=== PATIENT | male | born 1960 | race African-American/Black ===

== ENCOUNTER 2017-01-02 17:12 | Emergency (ER) | payer MEDICAID, OTHER ==
[~2017-01-02] VITALS: Ht 172.7 cm; Wt 95.3 kg
[~2017-01-02 17:12] MED LIST: ALBUTEROL2.5 MG/3 M INH; ALPRAZOLAM0.25 MG ORAL; ASPIR 8181 MG ORAL; ATARAX25 MG ORAL; CYCLOBENZAPRINE10 MG ORAL; IBUPROFEN600 MG ORAL; OMEPRAZOLE40 M1 ORAL; PROTONIX40 MG ORAL
[2017-01-02 18:10] VITALS: BP 120/79
--- NOTE | 2017-01-02 19:39 | Emergency Room Report ---
History of Present Illness General Chief Complaint: Dizziness Source: Patient Present Illness HPI 56-year-old male presents to ED for evaluation. States that while washing his car today of side he started to feel dizzy and lightheaded. Patient became very anxious and went inside. Patient states he started to cool off with a fan , started drinking water. Patient states he felt better however he came to ER for evaluation. Denies any dizziness at this time. Denies any headache, blurred vision. Denies chest pain or shortness of breath. Patient notes history of anxiety. Denies drug use. No other aggravating or leading factors. Denies any other associated symptoms. Allergies: Coded Allergies: PREDNISOLONE (Verified Allergy, Mild, Hives, 03/27/14) Patient History Past Medical History: psych hx Past Surgical History: none Pertinent Family History: none Social History: Denies: alcohol use, drug use, smoking Immunizations: UTD Reviewed Nursing Documentation: PMH: Agreed, PSxH: Agreed Nursing Documentation-PMH Past Medical History: No History, Except For Hx Asthma: Yes Hx Gastrointestinal Problems: Yes - GERD Hx Neurological Problems: Yes - Neck and right shoulder injury Review of Systems All Other Systems: negative except mentioned in HPI Physical Exam Vital Signs Date Time Temp Pulse Resp B/P Pulse Ox O2 Delivery O2 Flow Rate FiO2 01/02/17 17:25 98.6 85 14 121/77 98 Room Air Sp02 EP Interpretation: reviewed, normal General Appearance: no apparent distress, alert, GCS 15, non-toxic Head: normocephalic, atraumatic Eyes: bilateral eye PERRL, bilateral eye normal inspection ENT: hearing grossly normal, normal pharynx, no angioedema, normal voice Neck: full range of motion, supple/symm/no masses Respiratory: chest non-tender, lungs clear, normal breath sounds, speaking full sentences Cardiovascular #1: regular rate, rhythm, no edema Cardiovascular #2: 2+ carotid (R), 2+ carotid (L), 2+ radial (R), 2+ radial (L) , 2+ dorsalis pedis (R), 2+ dorsalis pedis (L) Gastrointestinal: normal bowel sounds, non tender, soft, non-distended, no guarding, no rebound Rectal: deferred Genitourinary: normal inspection, no CVA tenderness Musculoskeletal: back normal, gait/station normal, normal range of motion, non- tender Neurologic: alert, oriented x3, responsive, motor strength/tone normal, sensory intact, speech normal Psychiatric: judgement/insight normal, memory normal, mood/affect normal, no suicidal/homicidal ideation Reflexes: 3+ bicep (R), 3+ bicep (L), 3+ tricep (R), 3+ tricep (L), 3+ knee (R) , 3+ knee (L) Skin: normal color, no rash, warm/dry, well hydrated Lymphatic: no adenopathy Medical Decision Making Diagnostic Impression: Primary Impression: Dizziness Additional Impression: Anxiety attack ER Course Hospital Course 56-year-old M presents ED complaining of dizziness while outside. no symptoms now Differential diagnoses include: afib, Vtach, SVT, anxiety, dehydration Clinical course Patient placed on stretcher. After initial history, physical exam reveals a middle-age male in no acute distress. Physical exam unremarkable. Reviewed EMR patient has been here multiple times in the past for similar episodes. Patient has been seen by myself as well. Patient has history of anxiety which likely exacerbates his symptoms. Patient has no cardiac risk factors. Patient is stable vitals here EKG shows no acute ischemic changes, normal sinus rhythm Reassurance given to patient. I believe patient be safely discharged to home at this time I. I feel this is a highly complex case requiring extensive working including EKG/Rhythm strip, Xray/CT/US, Blood/urine lab work, repeat exams while in ED, and administration of strong opiates/narcotics for pain control, admission to hospital or close patient follow up. Diagnosis - dizziness, anxiety Stable and discharged to home. Instructed to followup with PMD. Return to ED if symptoms recur or worsen EKG Diagnostic Results Rate: normal Rhythm: NSR ST Segments: no acute changes ASA given to the pt in ED: No Rhythm Strip Diag. Results EP Interpretation: yes Rhythm: NSR, no PVC's, no ectopy Last Vital Signs Date Time Temp Pulse Resp B/P Pulse Ox O2 Delivery O2 Flow Rate FiO2 01/02/17 18:10 98.4 73 17 120/79 100 Room Air Status: improved Disposition: HOME, SELF-CARE Condition: Stable Referrals: [facility],REFERRING (PCP) Patient Instructions: Dizziness MICKEY THOMPSON M.D. January 02, 2017 19:39
--- NOTE | 2017-01-04 17:00 | Cardiology Report ---
APPROVED REPORT EKG Measurement Heart [id number] Normal sinus rhythm Normal ECG
== END 2017-01-02 18:13 | disposition home or self-care (01) ==
LOC: EMR 18:00
DX: R42 Dizziness and giddiness (principal); F41.9 Anxiety disorder, unspecified; J45.909 Unspecified asthma, uncomplicated; K21.9 Gastro-esophageal reflux disease without esophagitis
CPT/HCPCS: 93005; 99283

== ENCOUNTER 2017-05-09 09:01 | Emergency (ER) | payer MEDICAID ==
[~2017-05-09] VITALS: Ht 172.7 cm; Wt 93.0 kg
[2017-05-09 09:18] VITALS: BP 127/67
--- NOTE | 2017-05-09 09:29 | Emergency Room Report ---
History of Present Illness General Chief Complaint: Diarrhea Source: Patient Present Illness HPI 57-year-old male presents ED for evaluation. Patient states he's been having diarrhea x1 day. Patient feels very weak and dehydrated. Denies any abdominal pain. Denies any fevers or chills. Denies recent antibiotic use. Denies recent travel. No other aggravating relieving factors. Denies any other associated symptoms Allergies: Coded Allergies: PREDNISOLONE (Verified Allergy, Mild, Hives, 03/27/14) Patient History Past Medical History: asthma, GERD Past Surgical History: none Pertinent Family History: none Social History: Denies: smoking, alcohol use, drug use Immunizations: UTD Reviewed Nursing Documentation: PMH: Agreed, PSxH: Agreed Nursing Documentation-PMH Hx Asthma: Yes Hx Gastrointestinal Problems: Yes - GERD Hx Neurological Problems: Yes - Neck and right shoulder injury Review of Systems All Other Systems: negative except mentioned in HPI Physical Exam Vital Signs Date Time Temp Pulse Resp B/P (MAP) Pulse Ox O2 Delivery O2 Flow Rate FiO2 05/09/17 09:08 100.0 91 20 132/77 99 Room Air Sp02 EP Interpretation: reviewed, normal General Appearance: no apparent distress, alert, GCS 15, non-toxic Head: normocephalic, atraumatic Eyes: bilateral eye normal inspection, bilateral eye PERRL ENT: hearing grossly normal, normal pharynx, no angioedema, normal voice Neck: full range of motion, supple/symm/no masses Respiratory: chest non-tender, lungs clear, normal breath sounds, speaking full sentences Cardiovascular #1: regular rate, rhythm, no edema Cardiovascular #2: 2+ carotid (R), 2+ carotid (L), 2+ radial (R), 2+ radial (L) , 2+ dorsalis pedis (R), 2+ dorsalis pedis (L) Gastrointestinal: normal bowel sounds, non tender, soft, non-distended, no guarding, no rebound Rectal: deferred Genitourinary: normal inspection, no CVA tenderness Musculoskeletal: back normal, gait/station normal, normal range of motion, non- tender Neurologic: alert, oriented x3, responsive, motor strength/tone normal, sensory intact, speech normal Psychiatric: judgement/insight normal, memory normal, mood/affect normal, no suicidal/homicidal ideation Reflexes: 3+ bicep (R), 3+ bicep (L), 3+ tricep (R), 3+ tricep (L), 3+ knee (R) , 3+ knee (L) Skin: normal color, no rash, warm/dry, well hydrated Lymphatic: no adenopathy Medical Decision Making Diagnostic Impression: Primary Impression: Gastroenteritis Additional Impression: Renal insufficiency ER Course Hospital Course 57-year-old M presents to ED with cramping abdominal pain with vomiting, diarrhea differential diagnosis: gastritis, SBO, cholecystits, gastroenteritis Clinical course Patient placed on stretcher. On clinical writer. After initial history and physical I ordered labs, IV fluids, GI cocktail Labs - no leukocytosis, Cr 1.7, LFTs normal, UA unremarkable Upon reassessment, patient states he feels better. Given elevated creatinine I did offer patient option for admission for IV hydration He declined stating he would rather go home and drink fluids. Consistent gastroenteritis I feel this is a highly complex case requiring extensive working including EKG/ Rhythm strip, Xray/CT/US, Blood/urine lab work, repeat exams while in ED, and administration of strong opiates/narcotics for pain control, admission to hospital or close patient follow up. Diagnosis - gastroenteritis Stable and discharged to home with prescriptions for Zantac, Bentyl. Followup with PMD. Return to ED if symptoms recur or worsen Labs Test 05/09/17 09:40 White Blood Count 7.1 K/UL (4.8-10.8) Red Blood Count 5.04 M/UL (4.70-6.10) Hemoglobin 15.8 G/DL (14.2-18.0) Hematocrit 46.9 % (42.0-52.0) Mean Corpuscular Volume 93 FL (80-99) Mean Corpuscular Hemoglobin 31.3 PG (27.0-31.0) Mean Corpuscular Hemoglobin Concent 33.6 G/DL (32.0-36.0) Red Cell Distribution Width 12.1 % (11.6-14.8) Platelet Count 203 K/UL (150-450) Mean Platelet Volume 7.2 FL (6.5-10.1) Neutrophils (%) (Auto) 69.2 % (45.0-75.0) Lymphocytes (%) (Auto) 12.8 % (20.0-45.0) Monocytes (%) (Auto) 17.1 % (1.0-10.0) Eosinophils (%) (Auto) 0.0 % (0.0-3.0) Basophils (%) (Auto) 0.9 % (0.0-2.0) Sodium Level 136 mEQ/L (135-145) Potassium Level 3.6 mEQ/L (3.4-4.9) Chloride Level 99 mEQ/L (98-107) Carbon Dioxide Level 22 mEQ/L (20-30) Anion Gap 15 (5-15) Blood Urea Nitrogen 20 mg/dL (7-23) Creatinine 1.7 mg/dL (0.7-1.2) Estimat Glomerular Filtration Rate 50.4 mL/min (>60) Glucose Level 118 mg/dL (74-106) Calcium Level 8.8 mg/dL (8.6-10.2) Total Bilirubin 0.7 mg/dL (0.0-1.2) Aspartate Amino Transf (AST/SGOT) 20 U/L (5-40) Alanine Aminotransferase (ALT/SGPT) 9 U/L (3-41) Alkaline Phosphatase 59 U/L (40-129) Total Protein 7.3 g/dL (6.6-8.7) Albumin 3.7 g/dL (3.5-5.2) Globulin 3.6 g/dL Albumin/Globulin Ratio 1.0 (1.0-2.7) Lipase 11 U/L (< 60) Last Vital Signs Date Time Temp Pulse Resp B/P (MAP) Pulse Ox O2 Delivery O2 Flow Rate FiO2 05/09/17 09:08 100.0 91 20 132/77 99 Room Air Status: improved Disposition: HOME, SELF-CARE Condition: Stable Scripts Dicyclomine Hcl* (BENTYL*) 10 Mg Capsule 10 MG ORAL FOUR TIMES A DAY, #20 CAP Prov: MICKEY THOMPSON M.D. 05/09/17 Ranitidine Hcl* (ZANTAC*) 150 Mg Tablet 150 MG ORAL TWICE A DAY, #30 TAB Prov: MICKEY THOMPSON M.D. 05/09/17 Referrals: [facility],REFERRING (PCP) MICKEY THOMPSON M.D. May 09, 2017 09:29
[2017-05-09 09:58] LABS: BASOPHILS % (AUTO) 0.9 % (0.0-2.0); LYMPHOCYTES % (AUTO) 12.8 % (20.0-45.0); MEAN CORPUSCULAR HEMOGLOBIN 31.3 PG (27.0-31.0); MEAN CORPUSCULAR HGB CONC 33.6 G/DL (32.0-36.0); MEAN CORPUSCULAR VOLUME 93 FL (80-99); MEAN PLATELET VOLUME 7.2 FL (6.5-10.1); MONOCYTES % (AUTO) 17.1 % (1.0-10.0); NEUTROPHILS % (AUTO) 69.2 % (45.0-75.0); PLATELET COUNT 203 K/UL (150-450); RED BLOOD COUNT 5.04 M/UL (4.70-6.10); RED CELL DISTRIBUTION WIDTH 12.1 % (11.6-14.8); WHITE BLOOD COUNT 7.1 K/UL (4.8-10.8)
[2017-05-09 10:09] LABS: CALCIUM 8.8 mg/dL (8.6-10.2); CREATININE 1.7 mg/dL (0.7-1.2); GLOMERULAR FILTRATION RATE 50.4 mL/min (>60); POTASSIUM 3.6 mEQ/L (3.4-4.9); TOTAL PROTEIN 7.3 g/dL (6.6-8.7)
[2017-05-09] MEDS ORDERED: RANITIDINE HCL150 MG ORAL (10:58)
[2017-05-09] MEDS ORDERED: BENTYL10 MG ORAL (10:58)
[2017-05-09] MEDS ORDERED: Lidocaine 2% Visc 15ml soln ORAL ONE (11:00)
[2017-05-09] MEDS ORDERED: Mylanta II UD 30ml ORAL ONE (11:00)
[2017-05-09] MEDS ORDERED: Dicyclomine HCl 10mg/5ml oral soln ORAL ONE (11:00)
[2017-05-09 11:15] VITALS: BP 127/67
[2017-05-10] MEDS ORDERED: LOMOTIL TABLET1 EAC1 PO (02:34)
== END 2017-05-09 11:15 | disposition home or self-care (01) ==
LOC: EMR 09:19
DX: K52.9 Noninfective gastroenteritis and colitis, unspecified (principal); N28.9 Disorder of kidney and ureter, unspecified; J45.909 Unspecified asthma, uncomplicated; K21.9 Gastro-esophageal reflux disease without esophagitis
CPT/HCPCS: 36415; 80053; 83690; 85025; 96360; 99284

== ENCOUNTER 2017-05-10 02:04 | Emergency (ER) | payer MEDICAID ==
[~2017-05-10] VITALS: Ht 172.7 cm; Wt 93.0 kg
[~2017-05-10 02:04] MED LIST changes: +BENTYL10 MG ORAL; +RANITIDINE HCL150 MG ORAL
[2017-05-10] MEDS ORDERED: LOMOTIL TABLET1 EAC1 PO (02:34)
--- NOTE | 2017-05-10 02:34 | Emergency Room Report ---
History of Present Illness General Chief Complaint: Abdominal Pain Source: Patient Present Illness HPI Is a 57-year-old male with no symptoms in past medical history. He does have a history of anxiety. He presents with abdominal cramping and profuse watery diarrhea. Onset for 2 days. He thought it may be secondary to food poisoning. He was here yesterday and blood work was unremarkable. Because symptoms did not resolve he is here again. He called 911. No fever or chills but no nausea no vomiting. Decreased appetite. Diarrhea is watery. No blood. Allergies: Coded Allergies: PREDNISOLONE (Verified Allergy, Mild, Hives, 03/27/14) Patient History Past Medical History: see triage record, old chart reviewed Past Surgical History: none Pertinent Family History: none Social History: Denies: smoking Immunizations: other Reviewed Nursing Documentation: PMH: Agreed, PSxH: Agreed Nursing Documentation-PMH Past Medical History: No Stated History Hx Asthma: Yes Hx Gastrointestinal Problems: Yes - GERD Hx Neurological Problems: Yes - Neck and right shoulder injury Review of Systems Eye: Denies: eye pain, blurred vision ENT: Denies: ear pain, nose congestion, throat swelling Respiratory: Denies: cough, shortness of breath Cardiovascular: Denies: chest pain, palpitations Gastrointestinal: Reports: diarrhea, Denies: abdominal pain, nausea, vomiting Musculoskeletal: Denies: back pain, joint pain Skin: Denies: rash Neurological: Denies: headache, numbness Endocrine: Denies: increased thirst, increased urine Hematologic/Lymphatic: Denies: easy bruising All Other Systems: negative except mentioned in HPI Physical Exam Vital Signs Date Time Temp Pulse Resp B/P (MAP) Pulse Ox O2 Delivery O2 Flow Rate FiO2 05/10/17 01:58 99.9 84 16 134/75 97 Room Air vitals unremarkable Sp02 EP Interpretation: reviewed, normal General Appearance: well appearing, no apparent distress, alert Head: normocephalic, atraumatic Eyes: bilateral eye PERRL, bilateral eye EOMI ENT: hearing grossly normal, normal pharynx Neck: full range of motion, supple, no meningismus Respiratory: chest non-tender, lungs clear, normal breath sounds Cardiovascular #1: regular rate, rhythm, no murmur Gastrointestinal: non tender, no mass, no organomegaly, no bruit, non-distended , abnormal bowel sounds - Hyperactive, gurgling bowel sounds. Musculoskeletal: back normal, gait/station normal, normal range of motion Neurologic: alert, oriented x3 Psychiatric: mood/affect normal Skin: warm/dry Medical Decision Making Diagnostic Impression: Primary Impression: Diarrhea in adult patient ER Course Patient with abdominal cramping diarrhea. This is most likely a viral infection. Patient had normal CBC but elevated monocyte count on the differential. This pointed toward a viral etiology. Abdominal exam is benign. No evidence of obstruction or acute abdomen. We'll discharge home with reassurance. Last Vital Signs Date Time Temp Pulse Resp B/P (MAP) Pulse Ox O2 Delivery O2 Flow Rate FiO2 05/10/17 01:58 99.9 84 16 134/75 97 Room Air Status: unchanged Disposition: HOME, SELF-CARE Condition: Stable Scripts Diphenoxylate HCl/Atropine (Lomotil Tablet) 1 Each Tablet 1 EACH PO BID, #6 TAB Prov: JULIAN JUAN M.D. 05/10/17 Additional Instructions: followup with your DrZuleyma in 2-3 days. Return if symptom worsen. JULIAN JUAN M.D. May 10, 2017 02:34
[2017-05-10 02:48] VITALS: BP 134/75
== END 2017-05-10 02:50 | disposition home or self-care (01) ==
LOC: EDBD 02:04 → EMR 02:14
DX: R19.7 Diarrhea, unspecified (principal); R10.9 Unspecified abdominal pain; J45.909 Unspecified asthma, uncomplicated; K21.9 Gastro-esophageal reflux disease without esophagitis
CPT/HCPCS: 99283

== ENCOUNTER 2018-01-28 11:00 | Emergency (ER) | payer SELFPAY ==
[~2018-01-28] VITALS: Ht 172.7 cm; Wt 95.3 kg
[~2018-01-28 11:00] MED LIST changes: +LOMOTIL TABLET1 EAC1 PO
--- NOTE | 2018-01-28 11:58 | Diagnostic Imaging Report ---
EXAM: CT Head Without Intravenous Contrast CLINICAL HISTORY: PAIN TECHNIQUE: Axial computed tomography images of the head/brain without intravenous contrast. CTDI is 0.15 + 70.38 mGy and DLP is 1245 mGy-cm. One or more of the following dose reduction techniques were used: automated exposure control, adjustment of the mA and/or kV according to patient size, use of iterative reconstruction technique. COMPARISON: CT 09/22/14 FINDINGS: Brain: No hemorrhage. No edema. Ventricles: No ventriculomegaly. Bones/joints: No acute fracture. Soft tissues: Unremarkable. Sinuses: No acute sinusitis. Mastoid air cells: No mastoid effusion. IMPRESSION: No acute findings.
[2018-01-28] MEDS ORDERED: IBUPROFEN600 MG ORAL (12:18)
--- NOTE | 2018-01-28 12:18 | Emergency Room Report ---
History of Present Illness General Chief Complaint: Headache Source: Patient, Family Member Present Illness HPI Patient presents with complaints of headache Reports that he has been sleeping in his car for the past 7 days Was having some discomfort to the right side of his neck That progressed to some discomfort to the occipital region He was at [employer] today Reports feeling the headache again patient also reports That yesterday he was at a libertarian He was drinking what he thought was brittani naun However was told that it was beer Patient also smoked what he thinks was likely marijuana He feels that his headache was somewhat worsened this morning And presents for further eval Denies any photophobia denies any fevers denies any trauma Allergies: Coded Allergies: PREDNISOLONE (Verified Allergy, Mild, Hives, 03/27/14) Patient History Past Medical History: see triage record Pertinent Family History: none Reviewed Nursing Documentation: PMH: Agreed; PSxH: Agreed Nursing Documentation-PMH Hx Asthma: Yes Hx Gastrointestinal Problems: Yes - GERD Hx Neurological Problems: Yes - Neck and right shoulder injury Review of Systems All Other Systems: negative except mentioned in HPI Physical Exam Vital Signs Date Time Temp Pulse Resp B/P (MAP) Pulse Ox O2 Delivery O2 Flow Rate FiO2 01/28/18 11:11 98.1 78 15 134/84 96 Room Air 98.1 Sp02 EP Interpretation: reviewed, normal General Appearance: well appearing, no apparent distress Head: normocephalic, atraumatic Eyes: bilateral eye PERRL, bilateral eye EOMI ENT: hearing grossly normal, normal pharynx, TMs + canals normal, uvula midline Neck: full range of motion, supple, no meningismus, no bony tend Respiratory: lungs clear, normal breath sounds, no rhonchi, no respiratory distress, no retraction, no accessory muscle use Cardiovascular #1: normal peripheral pulses, regular rate, rhythm, no edema, no gallop, no JVD, no murmur Gastrointestinal: normal bowel sounds, non tender, soft, no mass, no organomegaly, non-distended, no guarding, no hernia, no pulsatile mass, no rebound Genitourinary: no CVA tenderness Musculoskeletal: normal inspection Neurologic: oriented x3, responsive, education and training coordinator III-XII nml as tested, motor strength/ tone normal, sensory intact Psychiatric: mood/affect normal Skin: normal color, no rash, warm/dry, palpation normal Lymphatic: normal inspection, no adenopathy Medical Decision Making Diagnostic Impression: Primary Impression: Headache ER Course Multiple differentials including but not limited to, intracranial pathology, neurological neurosurgical, infectious orthopedic pathology entertained CT head does not show any acute disease patient's Accu-Chek is also normal Patient remains normotensive Has benign repeat neurological exam My consideration for subarachnoid hemorrhage or other neurological emergencies and slow patient has not had lumbar puncturing at this time and will have initial conservative outpatient trial , CT/MRI/US Diagnostic Results CT/MRI/US Diagnostic Results : Impression CT head no acute disease Last Vital Signs Date Time Temp Pulse Resp B/P (MAP) Pulse Ox O2 Delivery O2 Flow Rate FiO2 01/28/18 11:11 98.1 78 15 134/84 96 Room Air 98.1 Status: improved Disposition: HOME, SELF-CARE Condition: Improved Referrals: NON PHYSICIAN (PCP) Additional Instructions: Patient is provided with the discharge instructions notified to follow up with primary doctor in the next 2-3 days otherwise return to the er with any worsening symptoms. Please note that this report is being documented using [employer] technology. This can lead to erroneous entry secondary to incorrect interpretation by the dictating instrument. Kenyon Bonilla DO Jan 28, 2018 12:18
[2018-01-28 12:25] VITALS: BP 133/80
== END 2018-01-28 12:25 | disposition home or self-care (01) ==
LOC: EMR 11:28
DX: R51 Headache (principal); J45.909 Unspecified asthma, uncomplicated; K21.9 Gastro-esophageal reflux disease without esophagitis
CPT/HCPCS: 70450; 82962; 99284

== ENCOUNTER 2018-05-09 12:41 | Emergency (ER) | payer SELFPAY ==
[~2018-05-09] VITALS: Ht 172.7 cm; Wt 95.3 kg
[2018-05-09 12:54] VITALS: BP 137/81
[2018-05-09] MEDS ORDERED: ASPIRIN81 MG ORAL (12:59)
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
[2018-05-09 14:20] VITALS: BP 124/76
--- NOTE | 2018-05-09 14:41 | Diagnostic Imaging Report ---
Indication: Chest pain Technique: One view of the chest Comparison: 06/25/2015 Findings: Suboptimal inspiration. Lungs and pleural spaces are clear. The aorta is tortuous. The heart size is upper limits normal Impression: No acute process
--- NOTE | 2018-05-11 15:33 | Cardiology Report ---
APPROVED REPORT EKG Measurement Heart [id number] Normal sinus rhythm Normal ECG
== END 2018-05-09 14:20 | disposition home or self-care (01) ==
LOC: EMR 13:36
DX: R42 Dizziness and giddiness (principal); J45.909 Unspecified asthma, uncomplicated; K21.9 Gastro-esophageal reflux disease without esophagitis
CPT/HCPCS: 71045; 93005; 99283

== ENCOUNTER 2018-10-24 07:03 | Emergency (ER) | payer SELFPAY ==
[~2018-10-24] VITALS: Ht 172.7 cm; Wt 93.0 kg
[~2018-10-24 07:03] MED LIST changes: +ASPIRIN81 MG ORAL
[2018-10-24 07:35] VITALS: BP 124/82
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
[2018-10-24] MEDS ORDERED: NORCO 5-325 TA1 EACH ORAL (08:48)
[2018-10-24] MEDS ORDERED: IBUPROFEN600 MG ORAL (08:48)
[2018-10-24 08:55] VITALS: BP 124/82
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
--- NOTE | 2018-10-24 09:09 | NUR ---
ER DISCHARGE NOTE: Patient is cleared to be discharged per ERMD, pt is aox4, on room air, with stable vital signs. pt was given dc and prescription instructions, pt was able to verbalize understanding, pt is able to ambulate with steady gait. pt took all belongings.
== END 2018-10-24 09:09 | disposition home or self-care (01) ==
LOC: EMR 07:35
DX: M54.5 Low back pain (principal); S46.912A Strain of unspecified muscle, fascia and tendon at shoulder and upper arm level, left arm, initial encounter; S66.912A Strain of unspecified muscle, fascia and tendon at wrist and hand level, left hand, initial encounter; V43.52XA Car driver injured in collision with other type car in traffic accident, initial encounter; Y92.410 Unspecified street and highway as the place of occurrence of the external cause; J45.909 Unspecified asthma, uncomplicated; K21.9 Gastro-esophageal reflux disease without esophagitis
CPT/HCPCS: 72020; 99284

== ENCOUNTER 2018-12-04 22:13 | Emergency (ER) | payer SELFPAY ==
[~2018-12-04] VITALS: Ht 172.7 cm; Wt 93.0 kg
[~2018-12-04 22:13] MED LIST changes: +NORCO 5-325 TA1 EACH ORAL
--- NOTE | 2018-12-04 22:40 | NUR ---
ED Nurse Note: pt walked in c/o burning pain on sternal-substernal chest area since 9 pm, denies n/v/d at this time, pt denies any cardiac hx, pt AA&ox4, gcs=15, skin warm and dry, resp even and unlabored on RA, -n/v/d, ambulates w/ steady gait, will cont monitor.
[2018-12-04 22:51] VITALS: BP_SYST 130; BP_SYST 143; BP_DIAS 87; BP_DIAS 91
--- NOTE | 2018-12-04 22:57 | Emergency Room Report ---
History of Present Illness General Chief Complaint: Chest Pain Source: Patient Present Illness HPI Is a 58-year-old male with history anxiety. He presents with chief complaint of chest pressure. Around 9:00 PM he was rubbing his chest and any push down any said he felt some pain. He said that causes him to get panicky and cause the pain to get worse. He said the pain as pressure-like and achy. No radiation. No shortness of breath. No diaphoresis but no exertional component. He took [address] He has no pain right now. Denies any other complaint. Allergies: Coded Allergies: PREDNISOLONE (Verified Allergy, Mild, Hives, 03/27/14) Patient History Past Medical History: see triage record, old chart reviewed Past Surgical History: none Pertinent Family History: none Social History: Denies: smoking Immunizations: other Reviewed Nursing Documentation: PMH: Agreed; PSxH: Agreed Nursing Documentation-PMH Past Medical History: No History, Except For Hx Asthma: Yes Hx Gastrointestinal Problems: Yes - GERD Hx Neurological Problems: Yes - Neck and right shoulder injury Review of Systems Eye: Denies: eye pain, blurred vision ENT: Denies: ear pain, nose congestion, throat swelling Respiratory: Denies: cough, shortness of breath Cardiovascular: Reports: chest pain; Denies: palpitations Gastrointestinal: Denies: abdominal pain, diarrhea, nausea, vomiting Musculoskeletal: Denies: back pain, joint pain Skin: Denies: rash Neurological: Denies: headache, numbness Endocrine: Denies: increased thirst, increased urine Hematologic/Lymphatic: Denies: easy bruising All Other Systems: negative except mentioned in HPI Physical Exam Vital Signs Date Time Temp Pulse Resp B/P (MAP) Pulse Ox O2 Delivery O2 Flow Rate FiO2 12/04/18 22:22 98.2 14 12 143/91 97 Room Air vitals normal Sp02 EP Interpretation: reviewed, normal General Appearance: well appearing, no apparent distress, alert Head: normocephalic, atraumatic Eyes: bilateral eye PERRL, bilateral eye EOMI ENT: hearing grossly normal, normal pharynx Neck: full range of motion, supple, no meningismus Respiratory: chest non-tender, lungs clear, normal breath sounds Cardiovascular #1: regular rate, rhythm, no murmur Gastrointestinal: normal bowel sounds, non tender, no mass, no organomegaly, no bruit, non-distended Musculoskeletal: back normal, gait/station normal, normal range of motion Psychiatric: mood/affect normal Skin: warm/dry Medical Decision Making Diagnostic Impression: Primary Impression: Chest pain Qualified Codes: R07.9 - Chest pain, unspecified ER Course Patient presents with nonspecific chest pressure. He has no other risk factor than age for CAD. Symptom is very atypical. No evidence of ACS, PE, dissection to name a few. We'll discharge home. EKG Diagnostic Results Rate: normal Rhythm: NSR ST Segments: no acute changes ASA given to the pt in ED: No Rhythm Strip Diag. Results EP Interpretation: yes Rate: 78 Rhythm: NSR, no PVC's Chest X-Ray Diagnostic Results Chest X-Ray Diagnostic Results : Chest X-Ray Ordered: Yes # of Views/Limited/Complete: 1 View Indication: Chest Pain EP Interpretation: Yes Interpretation: no consolidation, no effusion, no pneumothorax, no acute cardiopulmonary disease Impression: No acute disease Electronically Signed by: Goyo Daley MD Last Vital Signs Date Time Temp Pulse Resp B/P (MAP) Pulse Ox O2 Delivery O2 Flow Rate FiO2 12/04/18 22:51 98.2 86 18 143/91 98 Room Air 130/87 Status: improved Disposition: HOME, SELF-CARE Condition: Stable Patient Instructions: Nonspecific Chest Pain Additional Instructions: Follow-up with your doctor in 7 days. You may need a referral to see a supervisor corduroy cutting if continue with chest pain. Return if symptom worsen. Goyo Daley MD Dec 04, 2018 22:57
--- NOTE | 2018-12-04 23:20 | NUR ---
ED Nurse Note: xray at the bedside.
--- NOTE | 2018-12-04 23:28 | NUR ---
ED Nurse Note: blood specimen sent to lab.
[2018-12-04 23:38] LABS: BASOPHILS % (AUTO) 2.5 % (0.0-2.0); EOSINOPHILS % (AUTO) 9.3 % (0.0-3.0); HEMATOCRIT 49.6 % (42.0-52.0); HEMOGLOBIN 16.9 G/DL (14.2-18.0); LYMPHOCYTES % (AUTO) 35.5 % (20.0-45.0); MEAN CORPUSCULAR VOLUME 90 FL (80-99); MONOCYTES % (AUTO) 9.4 % (1.0-10.0); NEUTROPHILS % (AUTO) 43.3 % (45.0-75.0); PLATELET COUNT 236 K/UL (150-450); RED CELL DISTRIBUTION WIDTH 12.5 % (11.6-14.8); WHITE BLOOD COUNT 6.4 K/UL (4.8-10.8)
[2018-12-04 23:48] LABS: ANION GAP 10 mmol/L (5-15); BLOOD UREA NITROGEN 20 mg/dL (7-18); CALCIUM 9.2 MG/DL (8.5-10.1); CARBON DIOXIDE 26 MMOL/L (21-32); CHLORIDE 104 MMOL/L (98-107); CREATININE 1.5 MG/DL (0.55-1.30); POTASSIUM 3.5 MMOL/L (3.5-5.1); SODIUM 140 MMOL/L (136-145)
[2018-12-05 00:02] LABS: ALANINE AMINOTRANSFERASE 25 U/L (12-78); ALBUMIN 4.1 G/DL (3.4-5.0); ALBUMIN/GLOBULIN RATIO 0.9 (1.0-2.7); ALKALINE PHOSPHATASE 85 U/L (46-116); ASPARTATE AMINO TRANSFERASE 22 U/L (15-37); BILIRUBIN,TOTAL 0.3 MG/DL (0.2-1.0); CKMB 1.4 NG/ML (0.0-3.6); CREATINE KINASE 211 U/L (26-308)
[2018-12-05] MEDS ORDERED: Mylanta II UD 30ml ORAL ONE (00:15)
--- NOTE | 2018-12-05 00:15 | NUR ---
ED Nurse Note: pt cleared to be d/c per ERMD, pt discharge and aftercare instruction provided, pt education done via discussion and handout, pt advised to follow up with pcp or return to ed if changes in condition, pt verbalized understanding and agrees with plan, iv d/c and id band removed pt vss, resp even and unlabored on RA, left w/ all belongings.
[2018-12-05 00:16] VITALS: BP 132/86
--- NOTE | 2018-12-05 11:26 | Diagnostic Imaging Report ---
Indication: Chest pain Technique: One view of the chest Comparison: 05/09/2018 Findings: Better inspiration currently. Lungs and pleural spaces are clear. Prominent pericardial fat pad noted on the left. The heart size is normal. No significant interim change Impression: No acute process
--- NOTE | 2018-12-06 14:19 | Cardiology Report ---
APPROVED REPORT EKG Measurement Heart [id number] OR 130P48 [id number] Normal sinus rhythm Normal ECG
== END 2018-12-05 00:17 | disposition home or self-care (01) ==
LOC: EMR 22:34
DX: R07.89 Other chest pain (principal); J45.909 Unspecified asthma, uncomplicated; K21.9 Gastro-esophageal reflux disease without esophagitis; Z88.8 Allergy status to other drugs, medicaments and biological substances
CPT/HCPCS: 36415; 71045; 80053; 82550; 82553; 84484; 85025; 93005; 99283

== ENCOUNTER 2019-06-27 10:40 | Emergency (ER) | payer OTHER ==
[~2019-06-27] VITALS: Ht 172.7 cm; Wt 99.3 kg
[2019-06-27 10:45] VITALS: BP 132/93
--- NOTE | 2019-06-27 10:55 | NUR ---
ED Nurse Note: Patient walked into ED from home c/o unable to sleep since monday, patient reports he is anxious and feels weak. patient reports he has been having a lot of stress from his job. patient alert awake x4 ambulatory, breathing unlabored and even, speaking in full sentences. patient's vitals checked, stable. see flowsheet.
[2019-06-27 11:19] VITALS: BP 128/82
--- NOTE | 2019-06-27 11:40 | NUR ---
ED Nurse Note: patient taken to CT scan with counting machine operator Alex by ambulating in stable condition.
--- NOTE | 2019-06-27 11:52 | NUR ---
ED Nurse Note: patient came back fom CT in stable condition
[2019-06-27] MEDS ORDERED: MECLIZINE HCL25 MG ORAL (12:00)
[2019-06-27 12:05] VITALS: BP 142/90
[2019-06-27 12:35] VITALS: BP 142/90
--- NOTE | 2019-06-27 12:36 | NUR ---
ER DISCHARGE NOTE: Patient is cleared to be discharged per ERMD, pt is aox4, on room air, with stable vital signs. pt was given dc and prescription instructions, pt was able to verbalize understanding, pt id band removed. pt is able to ambulate with steady gait. pt took all belongings.
--- NOTE | 2019-06-27 12:38 | Diagnostic Imaging Report ---
Indication: Headache Technique: Contiguous 5 mm thick transaxial imaging of the head obtained in a Siemens Sensation [address] scanner. Soft tissue and bone windows generated. Automatic Exposure Control was utilized. Total Dose length Product (DLP): 1332.[address] Dose Index Volume (CTDIvol): 62.7 mGy Comparison: none Findings: There is mild prominence of the ventricles, basal cisterns, and cerebral sulci consistent with atrophy. Mild, nonspecific, white matter hypoattenuation is noted throughout the brain consistent with chronic small vessel disease. There is no midline shift, edema, acute hemorrhage, mass effect, or abnormal extra-axial fluid collections. Bones are unremarkable. Impression: No acute intracranial bleed, mass effect or edema. Mild atrophy of the brain. Nonspecific white matter hypoattenuation probably due to chronic small vessel disease. The CT scanner at [facility] is accredited by the [employer] and the scans are performed using dose optimization techniques as appropriate to a performed exam including Automatic Exposure control.
--- NOTE | 2019-06-27 19:58 | Emergency Room Report ---
History of Present Illness General Chief Complaint: Behavioral Complaint Source: Patient Present Illness Allergies: Coded Allergies: PREDNISOLONE (Verified Allergy, Mild, Hives, 03/27/14) Nursing Documentation-PMH Past Medical History: No History, Except For Hx Asthma: Yes Hx Gastrointestinal Problems: Yes - GERD History Of Psychiatric Problem: Yes - anxiety Hx Neurological Problems: Yes - Neck and right shoulder injury Physical Exam Vital Signs Date Time Temp Pulse Resp B/P (MAP) Pulse Ox O2 Delivery O2 Flow Rate FiO2 06/27/19 10:45 98.8 87 18 132/93 (106) 96 Room Air Medical Decision Making Diagnostic Impression: Primary Impression: Vertigo Last Vital Signs Date Time Temp Pulse Resp B/P (MAP) Pulse Ox O2 Delivery O2 Flow Rate FiO2 06/27/19 12:35 98.7 66 20 142/90 98 Room Air Status: improved Disposition: HOME, SELF-CARE Condition: Stable Scripts Meclizine Hcl* (MECLIZINE*) 25 Mg Tablet 25 MG ORAL THREE TIMES A DAY, #30 TAB Prov: Harrison Jarrett MD 06/27/19 Patient Instructions: Vertigo, [id number] Harrison Jarrett MD Jun 27, 2019 19:58
== END 2019-06-27 12:36 | disposition home or self-care (01) ==
LOC: EMR 11:14
DX: R42 Dizziness and giddiness (principal); Z88.8 Allergy status to other drugs, medicaments and biological substances; K21.9 Gastro-esophageal reflux disease without esophagitis; F41.9 Anxiety disorder, unspecified
CPT/HCPCS: 70450; 82962; Z7502; 99284

== ENCOUNTER 2019-12-26 21:16 | Emergency (ER) | payer OTHER ==
[~2019-12-26] VITALS: Ht 172.7 cm; Wt 88.5 kg
[~2019-12-26 21:16] MED LIST changes: +LIDODERM700 M1 TOPIC; +MECLIZINE HCL25 MG ORAL; +ROBAXIN-750750 MG PO
[2019-12-26 21:40] VITALS: BP 140/90
--- NOTE | 2019-12-26 22:00 | Emergency Room Report ---
History of Present Illness General Chief Complaint: General Complaint Source: Patient Present Illness HPI Patient presents with an episode of feeling shaky. He just made himself some stew and had some bites of the meat. 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 He is feeling anxious because of social isolation. He does have a problem with anxiety and has a medication that is not sure what it is but has not been taking it. He is concerned about his heart and possible blood sugar. Patient denies any fevers, chills, nausea, vomiting, diarrhea, dysuria, chest pain, palpitations, abdominal pain, headache, dizziness. Coming into the emergency department he feels much better. This in addition he drank some water. When asked about family history of stroke he says his mother had a stroke. He denies any unilateral weakness or numbness. No change in vision. 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 Patient History Past Medical History: see triage record Social History: Denies: smoking, alcohol use Social History Narrative From home Reviewed Nursing Documentation: PMH: Agreed; PSxH: Agreed Nursing Documentation-PMH Hx Asthma: Yes Hx Gastrointestinal Problems: Yes - GERD History Of Psychiatric Problem: Yes - anxiety Hx Neurological Problems: Yes - Neck and right shoulder injury Review of Systems All Other Systems: negative except mentioned in HPI Physical Exam Vital Signs Date Time Temp Pulse Resp B/P (MAP) Pulse Ox O2 Delivery O2 Flow Rate FiO2 12/26/19 21:33 98.4 89 18 149/92 (111) 96 Room Air Sp02 EP Interpretation: reviewed, normal General Appearance: well appearing, no apparent distress, GCS 15, non-toxic Head: normocephalic Eyes: bilateral eye normal inspection, bilateral eye PERRL, bilateral eye EOMI ENT: moist mucus membranes Neck: full range of motion, supple Respiratory: lungs clear, normal breath sounds, no respiratory distress Cardiovascular #1: regular rate, rhythm, no edema Cardiovascular #2: 2+ radial (R) Gastrointestinal: normal inspection, normal bowel sounds, non tender, soft Genitourinary: no CVA tenderness Musculoskeletal: gait/station normal, normal range of motion Neurologic: alert, motor strength/tone normal, cushion cover inspector III-XII nml as tested, oriented x3, sensory intact, cerebellar normal Psychiatric: anxious Skin: normal color, no rash, warm/dry Medical Decision Making Diagnostic Impression: Primary Impression: Anxiety attack ER Course Patient presents after a transient episode of "shakiness". Differential includes anxiety, dehydration, hypoglycemia, pulmonary embolus amongst others. He denies any chest complaints and therefore myocardial infarction or arrhythmia is less likely. Based on symptom complex and also vital signs pulmonary believes less likely. He denies infectious symptoms. It is encouraging that the episode was transient. His vital signs are stable here. Accu-Chek will be obtained. Patient is asking for medication to treat anxiety. The patient will be given a dose of Vistaril. There is no evidence of COVID- 19 infection at this time. Accu-Chek 93. No apparent medical emergency at this time. Discussed possible etiologies of the shakiness. Discussed that the patient will be observed at home. Recommended the patient make an appointment with his own doctor for follow-up. Patient stable for outpatient observation and treatment. Last Vital Signs Date Time Temp Pulse Resp B/P (MAP) Pulse Ox O2 Delivery O2 Flow Rate FiO2 12/26/19 22:09 98.4 18 140/90 96 Room Air 12/26/19 21:40 85 Status: improved Disposition: HOME, SELF-CARE Condition: Improved Scripts Hydroxyzine Pamoate (VISTARIL) 25 Mg Capsule 25 MG PO TID PRN for anxiety, #10 CAP Prov: Deondre Belle MD 12/26/19 Deondre Belle MD December 26, 2019 21:59
[2019-12-26] MEDS ORDERED: VISTARIL25 M1 PO (22:04)
[2019-12-26 22:09] VITALS: BP 140/90
== END 2019-12-26 22:09 | disposition home or self-care (01) ==
LOC: EMR 22:07
DX: F41.9 Anxiety disorder, unspecified (principal); J45.909 Unspecified asthma, uncomplicated; K21.9 Gastro-esophageal reflux disease without esophagitis; Z88.8 Allergy status to other drugs, medicaments and biological substances
CPT/HCPCS: 99282

== ENCOUNTER 2020-04-26 19:44 | Emergency (ER) | payer OTHER ==
[~2020-04-26] VITALS: Ht 172.7 cm; Wt 90.7 kg
[~2020-04-26 19:44] MED LIST changes: +TYLENOL EXTRA500 MG ORAL; +VISTARIL25 M1 PO
--- NOTE | 2020-04-26 19:55 | NUR ---
ED Nurse Note: Pt ambulated to ED from home c/o substernal burning for 4 days, denies pain upon exertion. Denies N/V or any other symptoms. Pt is A^OX4, VSS. Pt reports taht he thinks he "pulled a muscle. denies having this issue before. ERMD at bedside. Pt placed on radiographer cardiac catheterization
[2020-04-26 20:00] VITALS: BP 139/83
[2020-04-26] MEDS ORDERED: Mylanta II UD 30ml ORAL ONE (20:00)
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
--- NOTE | 2020-04-26 20:14 | NUR ---
ED Nurse Note: xray at bedside
--- NOTE | 2020-04-26 20:23 | Diagnostic Imaging Report ---
EXAM: XR Chest, 1 View CLINICAL HISTORY: CP TECHNIQUE: Frontal view of the chest. COMPARISON: Chest radiograph dated 12/04/2018. FINDINGS: Lungs: Unremarkable. No consolidation. Pleural space: Unremarkable. No pneumothorax. Heart: Unremarkable. No cardiomegaly. Mediastinum: Unremarkable. Bones/joints: Unremarkable. Soft tissues: Incidental mildly prominent epicardial fat. IMPRESSION: No acute findings in the chest.
[2020-04-26 20:32] LABS: BASOPHILS % (AUTO) 2.1 % (0.0-2.0); EOSINOPHILS % (AUTO) 7.8 % (0.0-3.0); HEMATOCRIT 48.7 % (42.0-52.0); HEMOGLOBIN 15.9 G/DL (14.2-18.0); LYMPHOCYTES % (AUTO) 46.2 % (20.0-45.0); MEAN CORPUSCULAR VOLUME 95 FL (80-99); MONOCYTES % (AUTO) 7.2 % (1.0-10.0); NEUTROPHILS % (AUTO) 36.7 % (45.0-75.0); PLATELET COUNT 223 K/UL (150-450); RED BLOOD COUNT 5.13 M/UL (4.70-6.10); RED CELL DISTRIBUTION WIDTH 12.5 % (11.6-14.8); WHITE BLOOD COUNT 7.5 K/UL (4.8-10.8)
[2020-04-26 20:44] LABS: ANION GAP 11 mmol/L (5-15); BLOOD UREA NITROGEN 18 mg/dL (7-18); CALCIUM 9.3 MG/DL (8.5-10.1); CARBON DIOXIDE 25 MMOL/L (21-32); CHLORIDE 106 MMOL/L (98-107); CREATININE 1.6 MG/DL (0.55-1.30); POTASSIUM 3.7 MMOL/L (3.5-5.1); SODIUM 142 MMOL/L (136-145)
[2020-04-26 20:55] LABS: ALANINE AMINOTRANSFERASE 22 U/L (12-78); ALBUMIN 4.4 G/DL (3.4-5.0); ALBUMIN/GLOBULIN RATIO 1.2 (1.0-2.7); ALKALINE PHOSPHATASE 74 U/L (46-116); ASPARTATE AMINO TRANSFERASE 26 U/L (15-37); BILIRUBIN,TOTAL 0.6 MG/DL (0.2-1.0); CREATINE KINASE 364 U/L (26-308)
[2020-04-26] MEDS ORDERED: VISTARIL25 M1 PO (22:00)
[2020-04-26] MEDS ORDERED: MYLANTA MAXIMU355 ML PO (22:00)
[2020-04-26] MEDS ORDERED: FAMOTIDINE20 MG ORAL (22:00)
[2020-04-26 22:10] VITALS: BP 124/78
--- NOTE | 2020-04-26 22:10 | NUR ---
ER DISCHARGE NOTE: Patient is cleared to be discharged per ERMD, pt is aox4, on room air, with stable vital signs. pt was given dc and prescription instructions, pt was able to verbalize understanding, pt id band and iv site removed without complications. pt is able to ambulate with steady gait. pt took all belongings.
== END 2020-04-26 22:10 | disposition home or self-care (01) ==
LOC: EMR 20:03
DX: R07.9 Chest pain, unspecified (principal); N28.9 Disorder of kidney and ureter, unspecified; F41.9 Anxiety disorder, unspecified; Z79.82 Long term (current) use of aspirin; Z88.8 Allergy status to other drugs, medicaments and biological substances; K21.9 Gastro-esophageal reflux disease without esophagitis
CPT/HCPCS: 36415; 71045; 80053; 82550; 83880; 84484; 85025; 93005; Z7502; 99283

== ENCOUNTER 2020-05-13 18:12 | Emergency (ER) | payer OTHER ==
[~2020-05-13] VITALS: Ht 172.7 cm; Wt 90.7 kg
[~2020-05-13 18:12] MED LIST changes: +FAMOTIDINE20 MG ORAL; +MYLANTA MAXIMU355 ML PO
[2020-05-13 18:41] VITALS: BP 136/86
--- NOTE | 2020-05-13 18:43 | NUR ---
ED Nurse Note:pt. came from home with c/o anxiety and abdominal discomfort after eating tacos today
--- NOTE | 2020-05-13 19:03 | NUR ---
ED Nurse Note:blood and urine sent to labs, given iv meds
[2020-05-13 19:12] LABS: BASOPHILS % (AUTO) 1.9 % (0.0-2.0); EOSINOPHILS % (AUTO) 9.3 % (0.0-3.0); HEMATOCRIT 47.6 % (42.0-52.0); HEMOGLOBIN 15.6 G/DL (14.2-18.0); LYMPHOCYTES % (AUTO) 33.1 % (20.0-45.0); MEAN CORPUSCULAR VOLUME 95 FL (80-99); MONOCYTES % (AUTO) 8.5 % (1.0-10.0); NEUTROPHILS % (AUTO) 47.2 % (45.0-75.0); PLATELET COUNT 223 K/UL (150-450); RED BLOOD COUNT 5.03 M/UL (4.70-6.10); RED CELL DISTRIBUTION WIDTH 12.8 % (11.6-14.8); WHITE BLOOD COUNT 6.6 K/UL (4.8-10.8)
[2020-05-13 19:13] LABS: APPEARANCE,URINE CLEAR; BILIRUBIN, URINE NEGATIVE (NEGATIVE); GLUCOSE, URINE (UA) NEGATIVE (NEGATIVE); KETONES,URINE 1+ (NEGATIVE); LEUKOCYTE ESTERASE ,URINE 1+ (NEGATIVE); NITRITE,URINE NEGATIVE (NEGATIVE); PH,URINE 6 (4.5-8.0); PROTEIN,URINE NEGATIVE (NEGATIVE); UROBILINOGEN,URINE 1 MG/DL (0.0-1.0)
[2020-05-13 19:23] LABS: COLOR,URINE YELLOW
[2020-05-13 19:24] LABS: CALCIUM 8.7 MG/DL (8.5-10.1); CREATININE 1.6 MG/DL (0.55-1.30); POTASSIUM 3.9 MMOL/L (3.5-5.1)
[2020-05-13 19:29] LABS: ALBUMIN 3.8 G/DL (3.4-5.0); BILIRUBIN,TOTAL 0.4 MG/DL (0.2-1.0)
[2020-05-13 20:15] VITALS: BP 139/81
--- NOTE | 2020-05-13 20:15 | NUR ---
ED Nurse Note:ER DISCHARGE NOTE: Patient is cleared to be discharged per ERMD, pt is aox4, on room air, with stable vital signs. pt was given dc and prescription instructions, pt was able to verbalize understanding, pt id band and iv site removed without complications. pt is able to ambulate with steady gait. pt took all belongings.
--- NOTE | 2020-05-13 20:16 | Emergency Room Report ---
History of Present Illness General Chief Complaint: General Complaint Source: Patient Present Illness HPI 60-year-old male with history of intermittent chest pain has been ongoing. Multiple times here complaining of feeling burning sensation and pain after eating for post with hot sauce earlier today. Patient reports that he was told not to eat spicy food last visit however he continues to do so. Denies any alcohol intake, tobacco smoke, drug use. Has not yet followed up with primary doctor since last visit. Denies any pain radiation to arm or neck. Denies any headache and dizziness. Denies any diffuse abdominal pain, nausea vomiting however complains of acid reflux and burning sensation in the chest. Reports that it starts in the epigastric area and then radiates to sternal region. Denies diarrhea and constipation. Denies any blood in stool. Denies any fall or injury. Is neurovascularly intact. No unilateral generalized weakness noted. Speaking full sentences and no slurred speech noted. Patient also had renal insufficiency diagnosed a few days ago when he was here and was asked to follow primary doctor, BUN/creatinine have not had a significant change since then. 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 Patient History Past Medical History: see triage record Past Surgical History: none Pertinent Family History: none Immunizations: UTD Reviewed Nursing Documentation: PMH: Agreed; PSxH: Agreed Nursing Documentation-PMH Past Medical History: No History, Except For Hx Asthma: Yes Hx Gastrointestinal Problems: Yes - GERD History Of Psychiatric Problem: Yes - anxiety Hx Neurological Problems: Yes - Neck and right shoulder injury Review of Systems All Other Systems: negative except mentioned in HPI Physical Exam Vital Signs Date Time Temp Pulse Resp B/P (MAP) Pulse Ox O2 Delivery O2 Flow Rate FiO2 05/13/20 18:22 98.2 89 15 136/86 (103) 99 Room Air Sp02 EP Interpretation: reviewed, normal General Appearance: no apparent distress, alert, GCS 15, non-toxic Head: normocephalic, atraumatic Eyes: bilateral eye normal inspection, bilateral eye PERRL ENT: hearing grossly normal, normal pharynx, no angioedema, normal voice Neck: full range of motion, supple/symm/no masses Respiratory: chest non-tender, lungs clear, normal breath sounds, no rhonchi, no respiratory distress, no retraction, speaking full sentences Cardiovascular #1: regular rate, rhythm, no edema Cardiovascular #2: 2+ carotid (R), 2+ carotid (L), 2+ radial (R), 2+ radial (L), 2+ dorsalis pedis (R), 2+ dorsalis pedis (L) Gastrointestinal: normal bowel sounds, non tender, soft, non-distended, no guarding, no rebound Rectal: deferred Genitourinary: no CVA tenderness Musculoskeletal: back normal, no calf tenderness Neurologic: alert, motor strength/tone normal, oriented x3, sensory intact, responsive, speech normal Psychiatric: judgement/insight normal, memory normal, mood/affect normal, no suicidal/homicidal ideation Skin: no rash Lymphatic: no adenopathy Medical Decision Making PA Attestation All diagnoses and treatment plans were reviewed and discussed with my supervising physician Dr. Norton Diagnostic Impression: Primary Impression: Chest pain Additional Impression: Gastritis ER Course 60-year-old male with history of intermittent chest pain has been ongoing. Multiple times here complaining of feeling burning sensation and pain after eating for post with hot sauce earlier today. Patient reports that he was told not to eat spicy food last visit however he continues to do so. Denies any alcohol intake, tobacco smoke, drug use. Has not yet followed up with primary doctor since last visit. Denies any pain radiation to arm or neck. Denies any headache and dizziness. Denies any diffuse abdominal pain, nausea vomiting however complains of acid reflux and burning sensation in the chest. Reports that it starts in the epigastric area and then radiates to sternal region. Denies diarrhea and constipation. Denies any blood in stool. Denies any fall or injury. Is neurovascularly intact. No unilateral generalized weakness noted. Speaking full sentences and no slurred speech noted. Patient also had renal insufficiency diagnosed a few days ago when he was here and was asked to follow primary doctor, BUN/creatinine have not had a significant change since then. Ddx considered but are not limited to: CA, Angina, COPD, GERD, Vital signs: are WNL, pt. is afebrile H&PE are most consistent with nonspecific chest pain, gastritis ORDERS: EKG, Chest XR, cardiac labs, CBC, CMP, UA, tox screen, pantoprazole, Pepcid, dicyclomine ED INTERVENTIONS: Pepcid DISCHARGE: At this time pt. is stable for d/c to home. Will provide printed patient care instructions, and any necessary prescriptions. Care plan and follow up instructions have been discussed with the patient prior to discharge. 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 Advised patient to return to the emergency room for same symptoms. This time I do not believe that further evaluation needed emergency department patient has had multiple work-up and all within normal limits. Patient also denies any pleuritic chest pain does not suggest any possibility of pulmonary embolism given the patient presentation lifestyle, and lab results EKG Diagnostic Results Rate: normal Rhythm: NSR ST Segments: no acute changes Other Impression No acute ST changes ASA given to the pt in ED: No Chest X-Ray Diagnostic Results Chest X-Ray Diagnostic Results : Chest X-Ray Ordered: Yes # of Views/Limited/Complete: 1 View Indication: Other EP Interpretation: Yes PA Xray: Interpretation reviewed, by supervising MD, and agrees with findings. Interpretation: no consolidation, no effusion, no pneumothorax Impression: No acute disease Electronically Signed by: Thierry Nolan PA-C Last Vital Signs Date Time Temp Pulse Resp B/P (MAP) Pulse Ox O2 Delivery O2 Flow Rate FiO2 05/13/20 18:41 89 15 Room Air 05/13/20 18:41 98.2 136/86 99 Disposition: HOME, SELF-CARE Condition: Stable Scripts Dicyclomine Hcl* (DICYCLOMINE HCL*) 10 Mg Capsule 10 MG ORAL QID, #20 CAP Prov: Thierry Castillo 05/13/20 Famotidine* (Pepcid 20mg tablet*) 20 Mg Tablet 20 MG ORAL TWICE A DAY for Gerd, #60 TAB 0 Refills Prov: Thierry Castillo 05/13/20 Pantoprazole* (PANTOPRAZOLE*) 40 Mg Tablet. 40 MG ORAL DAILY for Gerd, #30 TAB Prov: Thierry Castillo 05/13/20 Referrals: MATEO MORALES,REFERRING (PCP) Patient Instructions: Gastritis, Adult, [id number], Nonspecific Chest Pain Additional Instructions: Take medication as directed, follow primary doctor for referral to track rider and revenue collector, awaiting spicy acidic food, worsening symptoms return to the emergency room Thierry Castillo May 13, 2020 20:16
[2020-05-13] MEDS ORDERED: FAMOTIDINE20 MG ORAL (20:17)
[2020-05-13] MEDS ORDERED: DICYCLOMINE HCL10 MG ORAL (20:17)
[2020-05-13] MEDS ORDERED: PANTOPRAZOLE SO40 MG ORAL (20:17)
[2020-05-13 20:27] VITALS: BP 139/81
--- NOTE | 2020-05-14 15:51 | Diagnostic Imaging Report ---
Indication: Chest pain Technique: One view of the chest Comparison: 04/26/2020 Findings: Lungs and pleural spaces are clear. Heart size is normal. No significant change Impression: No acute process
== END 2020-05-13 20:27 | disposition home or self-care (01) ==
LOC: EMR 18:45
DX: K29.70 Gastritis, unspecified, without bleeding (principal); R07.9 Chest pain, unspecified; J45.909 Unspecified asthma, uncomplicated; K21.9 Gastro-esophageal reflux disease without esophagitis; Z88.8 Allergy status to other drugs, medicaments and biological substances
CPT/HCPCS: 36415; 71045; 80053; 80307; 81003; 84484; 85025; 93005; 96374; S0028; Z7502; 99284

== ENCOUNTER 2020-07-18 11:34 | Emergency (ER) | payer OTHER ==
[~2020-07-18] VITALS: Ht 172.7 cm; Wt 90.7 kg
[~2020-07-18 11:34] MED LIST changes: +DICYCLOMINE HCL10 MG ORAL; +PANTOPRAZOLE SO40 MG ORAL
--- NOTE | 2020-07-18 11:40 | NUR ---
ED Nurse Note: PT ambulated to ed c/o all over headache x 1-2 days. vss. pt denies taking any medication to alleviate pain. only medication taken MANAGER STERILE was 81mg ASA. pt denies, pain, blurry vision, n/v. pt reporst eating high sodium and high cholestrol foods a few days prior to headaches preciptating
[2020-07-18 11:47] VITALS: BP 141/84
--- NOTE | 2020-07-18 11:54 | Emergency Room Report ---
History of Present Illness General Chief Complaint: Headache Source: Patient, Medical Record Present Illness HPI Disclaimer: Please note that this report is being documented using DRAGON technology. This can lead to erroneous entry secondary to incorrect interpretation by the dictating instrument. HPI: 60-year-old male presents for evaluation of headache. Headache present approximately 2-1/2 days. Started after eating [place] food with soy sauce and hot sauce. These are known triggers for the patient. He does not suffer from chronic migraines. He reports a generalized headache over the top of his head. Improved on its own. Has not taken any medications. Denied visual changes, changes in balance or coordination, fever, chills, abdominal pain, nausea, vomiting, diaphoresis, chest pain palpitations, cough or other symptoms. His headache is nearly resolved now but wanted to be evaluated. Denies injury. Denies history of intracranial bleed or aneurysm. 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 EOMI. PERRLA. Visual pham are full. No nystagmus. Facial expressions are symmetrical. No facial droop. Cardiovascular: RRR. S1 and S2 normal. No murmur appreciated Resp: Normal work of breathing. No cough, wheezing or crackles appreciated Abdomen: Abdomen is soft, nondistended. Nontender Skin: Intact. No abrasions, laceration or rash over the exposed skin MSK: Normal tone and bulk. Moving all extremities. No obvious deformity. There is no drift in the upper or lower extremities bilaterally. Neuro: Awake and alert. Mentating appropriately. Facial expression symmetrical. No dysarthria, no ataxia on [id number] or [id number] testing. Sensation to light touch is intact over the upper and lower extremities. The patient has intact speech with good repetition, comprehension. Fund of knowledge is full. No aphasia, no neglect. NIH: 0 Medical Decision Making Diagnostic Impression: Primary Impression: Headache ER Course Is a 60-year-old male presenting for evaluation of headache. Differential includes was not limited to generalized headache, migraine headache, tension headache, cluster headache, space-occupying mass, cranial bleed among others. Suspect is a generalized headache that appears to be nearly resolved without medication. Very low suspicion for intracranial bleed, mass or other dangerous pathology. Patient had an unremarkable CT scan of his head June 2019. May be of been triggered by food preservatives in the [place] food, soy sauce and hot sauce which are known triggers for the patient. No other concerns at this time. Do not believe he requires emergent labs or imaging at this time. Will discharge with Tylenol. Instructed to return with new or worsening symptoms. Last Vital Signs Date Time Temp Pulse Resp B/P (MAP) Pulse Ox O2 Delivery O2 Flow Rate FiO2 07/18/20 11:47 98.2 87 18 141/84 96 Room Air Disposition: HOME, SELF-CARE Condition: Stable Scripts Acetaminophen* (TYLENOL EXTRA STRENGTH*) 500 Mg Tablet 500 MG ORAL Q8H PRN for Prn Headache/Temp > 101, #30 TAB 0 Refills Prov: Narciso Norton MD 07/18/20 Narciso Norton MD Jul 18, 2020 11:54
[2020-07-18] MEDS ORDERED: TYLENOL EXTRA500 MG ORAL (11:55)
--- NOTE | 2020-07-18 11:55 | NUR ---
ED Nurse Note: retrieved bedside accucheck per ERMD, results are 101; ermd informed
[2020-07-18 12:00] VITALS: BP 133/81
== END 2020-07-18 12:01 | disposition home or self-care (01) ==
LOC: EMR 12:00
DX: R51.9 Headache, unspecified (principal); J45.909 Unspecified asthma, uncomplicated; Z88.8 Allergy status to other drugs, medicaments and biological substances
CPT/HCPCS: 99282

== ENCOUNTER 2020-08-27 08:54 | Emergency (ER) | payer OTHER ==
[~2020-08-27] VITALS: Ht 182.9 cm; Wt 90.7 kg
--- NOTE | 2020-08-27 09:40 | NUR ---
ED Nurse Note: Pt walked in from home c/o earache and frequent urination x 3 days. Pt also reports heartburn yesterday, but denies CP at this time. Respirations even and unlabored on room air. Vitals stable as documented. A+Ox4, speaking in complete sentences.
--- NOTE | 2020-08-27 09:40 | Emergency Room Report ---
History of Present Illness General Chief Complaint: General Complaint Source: Patient Present Illness HPI Patient is a 60-year-old male presents for increased generalized increase in urination. Worsened at nighttime. Denies any orthopnea or shortness of breath. Denies any exertional problems. Had recently been assisting brother with moving furniture. Denies any prior history of diabetes. Reports having increased urinary frequency especially at night. Denies any urinary hesitancy. Denies any weight loss. Reports having slightly decreased appetite. Denies any vomiting or current chest discomfort. Allergies: Coded Allergies: PREDNISOLONE (Verified Allergy, Mild, Hives, 03/27/14) COVID-19 Screening Contact w/high risk pt: No Recent Travel to affected area: No Experienced COVID-19 symptoms?: No COVID-19 Testing performed CAR COUPLER: No Patient History Past Medical History: see triage record Reviewed Nursing Documentation: PMH: Agreed; PSxH: Agreed Nursing Documentation-PM Past Medical History: No Stated History Hx Asthma: Yes Hx Gastrointestinal Problems: Yes - GERD Hx Neurological Problems: Yes - Neck and right shoulder injury Review of Systems All Other Systems: negative except mentioned in HPI Physical Exam Vital Signs Date Time Temp Pulse Resp B/P (MAP) Pulse Ox O2 Delivery O2 Flow Rate FiO2 08/27/20 09:30 98.2 80 16 146/92 (110) 97 Room Air Sp02 EP Interpretation: reviewed, normal General Appearance: normal inspection, well appearing, no apparent distress, alert, GCS 15 Head: atraumatic ENT: normal ENT inspection, hearing grossly normal, normal voice Neck: normal inspection, full range of motion, supple, no bony tend Respiratory: normal inspection, lungs clear, normal breath sounds, no respiratory distress, no retraction, no wheezing Cardiovascular #1: regular rate, rhythm, no edema Gastrointestinal: normal inspection, normal bowel sounds, non tender, soft, no guarding, no hernia Genitourinary: no CVA tenderness Musculoskeletal: normal inspection, back normal, normal range of motion Neurologic: alert, motor strength/tone normal, patient services assistant III-XII nml as tested, oriented x3, responsive, speech normal, normal inspection Psychiatric: normal inspection, judgement/insight normal, mood/affect normal Medical Decision Making Diagnostic Impression: Primary Impression: Leukopenia Additional Impressions: Dizziness Renal insufficiency Labs Test 08/27/20 10:20 08/27/20 10:30 White Blood Count 4.5 K/UL (4.8-10.8) Red Blood Count 5.54 M/UL (4.70-6.10) Hemoglobin 16.4 G/DL (14.2-18.0) Hematocrit 51.9 % (42.0-52.0) Mean Corpuscular Volume 94 FL (80-99) Mean Corpuscular Hemoglobin 29.6 PG (27.0-31.0) Mean Corpuscular Hemoglobin Concent 31.5 G/DL (32.0-36.0) Red Cell Distribution Width 12.9 % (11.6-14.8) Platelet Count 212 K/UL (150-450) Mean Platelet Volume 8.0 FL (6.5-10.1) Neutrophils (%) (Auto) 33.1 % (45.0-75.0) Lymphocytes (%) (Auto) 45.8 % (20.0-45.0) Monocytes (%) (Auto) 7.8 % (1.0-10.0) Eosinophils (%) (Auto) 11.0 % (0.0-3.0) Basophils (%) (Auto) 2.3 % (0.0-2.0) Sodium Level 139 MMOL/L (136-145) Potassium Level 4.1 MMOL/L (3.5-5.1) Chloride Level 105 MMOL/L (98-107) Carbon Dioxide Level 24 MMOL/L (21-32) Anion Gap 10 mmol/L (5-15) Blood Urea Nitrogen 16 mg/dL (7-18) Creatinine 1.5 MG/DL (0.55-1.30) Estimat Glomerular Filtration Rate 57.7 mL/min (>60) Glucose Level 91 MG/DL (74-106) Calcium Level 9.3 MG/DL (8.5-10.1) Total Bilirubin 0.8 MG/DL (0.2-1.0) Aspartate Amino Transf (AST/SGOT) 23 U/L (15-37) Alanine Aminotransferase (ALT/SGPT) 14 U/L (12-78) Alkaline Phosphatase 64 U/L (46-116) Troponin I 0.000 ng/mL (0.000-0.056) Pro-B-Type Natriuretic Peptide 27 pg/mL (0-125) Total Protein 7.9 G/DL (6.4-8.2) Albumin 4.0 G/DL (3.4-5.0) Globulin 3.9 g/dL Albumin/Globulin Ratio 1.0 (1.0-2.7) Thyroid Stimulating Hormone (TSH) 2.033 uiU/mL (0.358-3.740) Urine Color Pale yellow Urine Appearance Clear Urine pH 7 (4.5-8.0) Urine Specific [place] 1.010 (1.005-1.035) Urine Protein Negative (NEGATIVE) Urine Glucose (UA) Negative (NEGATIVE) Urine Ketones Negative (NEGATIVE) Urine Blood Negative (NEGATIVE) Urine Nitrite Negative (NEGATIVE) Urine Bilirubin Negative (NEGATIVE) Urine Urobilinogen Normal MG/DL (0.0-1.0) Urine Leukocyte Esterase Negative (NEGATIVE) Urine RBC 0 /HPF (0 - 0) Urine WBC 0-2 /HPF (0 - 0) Urine Squamous Epithelial Cells Occasional /LPF Urine Bacteria Occasional /HPF (NONE) Last Vital Signs Date Time Temp Pulse Resp B/P (MAP) Pulse Ox O2 Delivery O2 Flow Rate FiO2 08/27/20 09:30 98.2 80 16 146/92 (110) 97 Room Air Status: improved Disposition: HOME, SELF-CARE Condition: Stable Referrals: NON PHYSICIAN (PCP) Harrison Jarrett MD Aug 27, 2020 09:40
[2020-08-27 09:45] VITALS: BP 141/87
[2020-08-27 10:31] LABS: BASOPHILS % (AUTO) 2.3 % (0.0-2.0); HEMATOCRIT 51.9 % (42.0-52.0); HEMOGLOBIN 16.4 G/DL (14.2-18.0); LYMPHOCYTES % (AUTO) 45.8 % (20.0-45.0); MEAN CORPUSCULAR VOLUME 94 FL (80-99); MONOCYTES % (AUTO) 7.8 % (1.0-10.0); NEUTROPHILS % (AUTO) 33.1 % (45.0-75.0); PLATELET COUNT 212 K/UL (150-450); RED BLOOD COUNT 5.54 M/UL (4.70-6.10); RED CELL DISTRIBUTION WIDTH 12.9 % (11.6-14.8); WHITE BLOOD COUNT 4.5 K/UL (4.8-10.8)
[2020-08-27 10:40] LABS: APPEARANCE,URINE CLEAR; BILIRUBIN, URINE NEGATIVE (NEGATIVE); COLOR,URINE PALE YELLOW; GLUCOSE, URINE (UA) NEGATIVE (NEGATIVE); KETONES,URINE NEGATIVE (NEGATIVE); LEUKOCYTE ESTERASE ,URINE NEGATIVE (NEGATIVE); NITRITE,URINE NEGATIVE (NEGATIVE); PH,URINE 7 (4.5-8.0); PROTEIN,URINE NEGATIVE (NEGATIVE); UROBILINOGEN,URINE NORMAL MG/DL (0.0-1.0)
[2020-08-27 10:41] LABS: CALCIUM 9.3 MG/DL (8.5-10.1); CREATININE 1.5 MG/DL (0.55-1.30); POTASSIUM 4.1 MMOL/L (3.5-5.1)
[2020-08-27 10:53] LABS: BILIRUBIN,TOTAL 0.8 MG/DL (0.2-1.0)
--- NOTE | 2020-08-27 11:16 | Diagnostic Imaging Report ---
Indication: Dizziness Technique: XRAY Chest 1v Comparison: 05/13/2020 Findings: Heart size and mediastinal contours are within normal limits for AP technique and stable compared to the prior exam. There is no focal airspace consolidation, pneumothorax or pleural effusion. Osseous structures demonstrate no acute abnormality. Impression: No radiographic evidence of acute cardiopulmonary disease.
[2020-08-27 11:35] VITALS: BP 127/73
--- NOTE | 2020-08-27 11:35 | NUR ---
ED Nurse Note: Pt cleared by health care Provider for discharge. DC instructions/prescription was given and explained to pt and verbalized understanding of teachings. All medical deviecs such as ID band removed. Pt is AAO x4, ambulatory and left with all personal belongings.
== END 2020-08-27 11:40 | disposition home or self-care (01) ==
LOC: EMR 09:06
DX: D72.819 Decreased white blood cell count, unspecified (principal); N28.9 Disorder of kidney and ureter, unspecified; R42 Dizziness and giddiness; J45.909 Unspecified asthma, uncomplicated; K21.9 Gastro-esophageal reflux disease without esophagitis; Z88.8 Allergy status to other drugs, medicaments and biological substances
CPT/HCPCS: 36415; 71045; 80053; 81001; 83880; 84443; 84484; 85025; 93005; Z7502; 99284

== ENCOUNTER 2020-09-06 04:51 | Emergency (ER) | payer OTHER ==
[~2020-09-06] VITALS: Ht 172.7 cm; Wt 90.7 kg
[2020-09-06 05:07] VITALS: BP 143/87
--- NOTE | 2020-09-06 05:07 | Emergency Room Report ---
History of Present Illness General Chief Complaint: General Complaint Source: Patient Present Illness HPI This is a 60-year-old male with a history of depression. He presents with complaint of shortness of breath. Said he woke up feeling that he cannot take a deep breath. No fever chills but no nausea no vomiting. No chest pain. Similar symptom in the past. Denies any exertional component. No pain. Allergies: Coded Allergies: PREDNISOLONE (Verified Allergy, Mild, Hives, 03/27/14) COVID-19 Screening Contact w/high risk pt: No Recent Travel to affected area: No Experienced COVID-19 symptoms?: No COVID-19 Testing performed SUSTAINABLE DESIGN COORDINATOR: No Patient History Past Medical History: see triage record, old chart reviewed Past Surgical History: none Pertinent Family History: none Social History: Denies: smoking Immunizations: other Reviewed Nursing Documentation: PMH: Agreed; PSxH: Agreed Nursing Documentation-PMH Hx Asthma: Yes Hx Gastrointestinal Problems: Yes - GERD History Of Psychiatric Problem: Yes - anxiety Hx Neurological Problems: Yes - Neck and right shoulder injury Review of Systems Eye: Denies: eye pain, blurred vision ENT: Denies: ear pain, nose congestion, throat swelling Respiratory: Reports: shortness of breath; Denies: cough Cardiovascular: Denies: chest pain, palpitations Gastrointestinal: Denies: abdominal pain, diarrhea, nausea, vomiting Musculoskeletal: Denies: back pain, joint pain Skin: Denies: rash Neurological: Denies: headache, numbness Endocrine: Denies: increased thirst, increased urine Hematologic/Lymphatic: Denies: easy bruising All Other Systems: negative except mentioned in HPI Physical Exam Vital Signs Date Time Temp Pulse Resp B/P (MAP) Pulse Ox O2 Delivery O2 Flow Rate FiO2 09/06/20 04:54 98.2 91 18 143/87 (105) 99 Room Air vitals unremarkable Sp02 EP Interpretation: reviewed, normal General Appearance: well appearing, no apparent distress, alert Head: normocephalic, atraumatic Eyes: bilateral eye PERRL, bilateral eye EOMI ENT: hearing grossly normal, normal pharynx Neck: full range of motion, supple, no meningismus Respiratory: chest non-tender, lungs clear, normal breath sounds Cardiovascular #1: regular rate, rhythm, no murmur Gastrointestinal: normal bowel sounds, non tender, no mass, no organomegaly, no bruit, non-distended Musculoskeletal: back normal, normal range of motion, gait/station normal Psychiatric: anxious Medical Decision Making Diagnostic Impression: Primary Impression: Anxiety ER Course Patient presents with symptoms consistent with anxiety. He is not hypoxic, tachypneic or tachycardic. He has no other risk factor for PE or DVT. Better after Ativan. EKG is normal. Will discharge home with reassurance. EKG Diagnostic Results Rate: normal Rhythm: NSR ST Segments: no acute changes Last Vital Signs Date Time Temp Pulse Resp B/P (MAP) Pulse Ox O2 Delivery O2 Flow Rate FiO2 09/06/20 04:54 98.2 91 18 143/87 (105) 99 Room Air Status: improved Disposition: HOME, SELF-CARE Condition: Stable Scripts Lorazepam* (ATIVAN*) 1 Mg Tablet 1 MG ORAL THREE TIMES A DAY, #15 TAB Prov: Goyo Daley MD 09/06/20 Additional Instructions: Follow-up with your doctor in 7 days. Return if symptoms worsen. Goyo Daley MD Sep 06, 2020 05:07
[2020-09-06] MEDS ORDERED: LORazepam 1mg tab ORAL ONE (05:15)
--- NOTE | 2020-09-06 05:15 | NUR ---
ED Nurse Note: Pt ambulated into ED without assistance. Pt reports he feels like he needs to take deep breaths, and he cannot sleep x1 hour. Pt c/o no pain at this time. Pt AAO x4.
[2020-09-06] MEDS ORDERED: ATIVAN1 MG ORAL (05:19)
--- NOTE | 2020-09-06 05:30 | NUR ---
ED Nurse Note: Pt cleared by health care Provider for discharge. D/C instructions and prescription given and explained to pt; pt verbalized understanding of teachings. ID band removed. Pt is AAO x4, ambulatory and left with all personal belongings.
[2020-09-06 05:32] VITALS: BP 140/80
== END 2020-09-06 05:32 | disposition home or self-care (01) ==
LOC: EMR 05:09
DX: F41.9 Anxiety disorder, unspecified (principal); R06.02 Shortness of breath; J45.909 Unspecified asthma, uncomplicated; K21.9 Gastro-esophageal reflux disease without esophagitis
CPT/HCPCS: 93005; Z7502; 99282